=== PATIENT | male | born 1965 | race Caucasian/White ===

== ENCOUNTER 2019-10-07 13:45 | Emergency (ER) | payer SELFPAY ==
[~2019-10-07] VITALS: Ht 182.9 cm; Wt 101.0 kg
[2019-10-07 14:29] LABS: BASOPHILS # (AUTO) 0.05 x10^3/uL (0-0.1); BASOPHILS % (AUTO) 1 % (0-1); EOSINOPHILS # (AUTO) 0.09 x10^3/uL (0-0.4); EOSINOPHILS % (AUTO) 1 % (1-7); LYMPHOCYTES # (AUTO) 1.07 x10^3/uL (1-3.4); LYMPHOCYTES % (AUTO) 15 % (22-44); MD NO; MEAN PLATELET VOLUME 7.3 fL (7.4-10.4); MONOCYTES # (AUTO) 0.39 x10^3/uL (0.2-0.8); MONOCYTES % (AUTO) 6 % (2-9); NEUTROPHILS # (AUTO) 5.35 x10^3/uL (1.8-6.8); NEUTROPHILS % (AUTO) 77 % (42-75); PLATELET COUNT 246 x10^3/uL (130-400); RED BLOOD COUNT 4.53 x10^6/uL (4.38-5.82); RED CELL DISTRIBUTION WIDTH 12.6 % (9.4-14.8)
[2019-10-07 14:40] LABS: ALBUMIN 4.3 g/dL (3.4-5.0); ANION GAP 10 mmol/L (5-15); CALCIUM 9.2 mg/dL (8.5-10.1); CHLORIDE 107 mmol/L (98-107)
[2019-10-07 14:44] LABS: TROPONIN I < 0.015 ng/mL (0.000-0.045)
--- NOTE | 2019-10-07 17:29 | NUR ---
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
== END 2019-10-07 17:31 | disposition left against medical advice (07) ==
LOC: ED 17:15
DX: R06.02 Shortness of breath (principal); R42 Dizziness and giddiness; R20.2 Paresthesia of skin
CPT/HCPCS: 36415; 71045; 80048; 82040; 84484; 85025; 93005; 99285